=== PATIENT | female | born 2000 | race American Indian/Alaskan Native ===

== ENCOUNTER 2019-07-13 08:22 | Emergency (ER) | payer SELFPAY ==
[2019-07-13] MEDS ORDERED: LORazepam 2 MG/ML VIAL ONE (08:35)
[2019-07-13] MEDS ORDERED: LORazepam 2 MG/ML VIAL IV ONE (08:35)
[2019-07-13] MEDS ORDERED: SODIUM CHLORIDE 0.9% 1000 ML 1,000 ML IV ONE (08:36)
--- NOTE | 2019-07-13 08:41 | Emergency Department Report ---
ED General Adult HPI - General Chief complaint: Overdose Stated complaint: AMS Time Seen by Provider: 07/13/19 08:34 Source: EMS Mode of arrival: Stretcher Limitations: Other - History of Present Illness Initial comments: This is a 18-year old female that was found handcuffed by police on the [facility]. According to the medics she took LSD at approximately 2 AM. She had signs of excited delirium so they gave her Haldol, benzos and Benadryl. She did not respond to verbal de-escalation. She presented to the emergency department persistently delirious. She was able to tell me her name but proceeded with a delirious flight of ideas. There was no report of injury. Paramedics stated that she was tachycardic in the field with a normal blood pressure. -: hour(s) - Related Data Allergies Allergy/AdvReac Type Severity Reaction Status Date / Time No Known Allergies Allergy Verified 07/13/19 12:04 ED Review of Systems ROS: Stated complaint: AMS Other details as noted in HPI Comment: Unobtainable due to pts medical conditions ED Past Medical Hx - Past Medical History Additional medical history: Unknown - Social History Smoking Status: Never Smoker ED Physical Exam - General Limitations: Altered Mental Status General appearance: other (Quite agitated) - Head Head exam: Present: atraumatic - Eye Eye exam: Present: normal appearance - ENT ENT exam: Present: normal exam - Neck Neck exam: Present: normal inspection - Respiratory Respiratory exam: Present: normal lung sounds bilaterally. Absent: respiratory distress - Cardiovascular Cardiovascular Exam: Present: normal rhythm, tachycardia. Absent: systolic murmur, diastolic murmur, rubs, gallop - GI/Abdominal GI/Abdominal exam: Present: soft, normal bowel sounds. Absent: distended, tenderness, guarding, rebound, rigid - Extremities Exam Extremities exam: Present: normal inspection - Back Exam Back exam: Present: normal inspection - Neurological Exam Neurological exam: Present: altered, other (No apparent focal deficits) - Psychiatric Psychiatric exam: Present: agitated, flat affect - Skin Skin exam: Present: warm, dry, intact, normal color. Absent: rash ED Course Vital Signs 07/13/19 07/13/19 07/13/19 08:36 08:46 09:00 Temperature 98.8 F Pulse Rate 142 H 130 H Respiratory 29 H 19 Rate Blood Pressure 112/40 131/55 Blood Pressure 132/51 [Left] O2 Sat by Pulse 97 98 97 Oximetry 07/13/19 07/13/19 07/13/19 09:15 09:30 09:45 Temperature Pulse Rate 147 H Respiratory 31 H 26 H Rate Blood Pressure 124/48 124/48 133/51 Blood Pressure [Left] O2 Sat by Pulse 99 Oximetry 07/13/19 07/13/19 10:00 10:15 Temperature Pulse Rate 141 H 125 H Respiratory 24 29 H Rate Blood Pressure 125/59 124/71 Blood Pressure [Left] O2 Sat by Pulse Oximetry - Reevaluation(s) Reevaluation #1: Patient was observed. She became entirely coherent. Family arrived. She is appropriate for outpatient disposition. 07/13/19 13:30 ED Medical Decision Making - Lab Data Result diagrams: 07/13/19 08:49 07/13/19 08:49 Laboratory Results - last 24 hr 07/13/19 07/13/19 07/13/19 08:49 08:49 08:49 WBC 13.9 H RBC 3.96 Hgb 12.5 Hct 37.2 MCV 94 MCH 32 MCHC 34 RDW 13.4 Plt Count 203 Lymph % (Auto) 7.2 L [place] % (Auto) 7.2 Eos % (Auto) 0.1 Baso % (Auto) 0.3 Lymph # 1.0 L [place] # 1.0 H Eos # 0.0 Baso # 0.0 Seg Neutrophils % 85.2 H Seg Neutrophils # 11.8 H Sodium 138 Potassium 3.3 L Chloride 101.5 Carbon Dioxide 19 L Anion Gap 21 BUN 15 Creatinine 1.0 Estimated GFR > 60 BUN/Creatinine Ratio 15 Glucose 231 H Calcium 9.4 Total Bilirubin 0.40 AST 16 ALT 8 Alkaline Phosphatase 78 Total Creatine Kinase 346 H CK-MB (CK-2) 1.5 CK-MB (CK-2) Rel Index 0.4 Total Protein 6.9 Albumin 4.6 Albumin/Globulin Ratio 2.0 Salicylates < 0.3 L Acetaminophen 07/13/19 08:49 WBC RBC Hgb Hct MCV MCH MCHC RDW Plt Count Lymph % (Auto) [place] % (Auto) Eos % (Auto) Baso % (Auto) Lymph # [place] # Eos # Baso # Seg Neutrophils % Seg Neutrophils # Sodium Potassium Chloride Carbon Dioxide Anion Gap BUN Creatinine Estimated GFR BUN/Creatinine Ratio Glucose Calcium Total Bilirubin AST ALT Alkaline Phosphatase Total Creatine Kinase CK-MB (CK-2) CK-MB (CK-2) Rel Index Total Protein Albumin Albumin/Globulin Ratio Salicylates Acetaminophen < 5.0 L Laboratory Results - last 24 hr 07/13/19 07/13/19 07/13/19 08:49 08:49 08:49 WBC 13.9 H RBC 3.96 Hgb 12.5 Hct 37.2 MCV 94 MCH 32 MCHC 34 RDW 13.4 Plt Count 203 Lymph % (Auto) 7.2 L [place] % (Auto) 7.2 Eos % (Auto) 0.1 Baso % (Auto) 0.3 Lymph # 1.0 L [place] # 1.0 H Eos # 0.0 Baso # 0.0 Seg Neutrophils % 85.2 H Seg Neutrophils # 11.8 H Sodium 138 Potassium 3.3 L Chloride 101.5 Carbon Dioxide 19 L Anion Gap 21 BUN 15 Creatinine 1.0 Estimated GFR > 60 BUN/Creatinine Ratio 15 Glucose 231 H Calcium 9.4 Total Bilirubin 0.40 Direct Bilirubin < 0.2 Indirect Bilirubin 0.2 AST 16 ALT 8 Alkaline Phosphatase 78 Total Creatine Kinase 346 H CK-MB (CK-2) 1.5 CK-MB (CK-2) Rel Index 0.4 Total Protein 6.9 Albumin 4.6 Albumin/Globulin Ratio 2.0 Urine Color Urine Turbidity Urine pH Ur Specific [place] Urine Protein Urine Glucose (UA) Urine Ketones Urine Blood Urine Nitrite Ur Reducing Substances Urine Bilirubin Urine Ictotest Urine Urobilinogen Ur Leukocyte Esterase Urine WBC (Auto) Urine RBC (Auto) U Epithel Cells (Auto) Urine Mucus Urine HCG, Qual Salicylates < 0.3 L Acetaminophen 07/13/19 07/13/19 08:49 09:35 WBC RBC Hgb Hct MCV MCH MCHC RDW Plt Count Lymph % (Auto) [place] % (Auto) Eos % (Auto) Baso % (Auto) Lymph # [place] # Eos # Baso # Seg Neutrophils % Seg Neutrophils # Sodium Potassium Chloride Carbon Dioxide Anion Gap BUN Creatinine Estimated GFR BUN/Creatinine Ratio Glucose Calcium Total Bilirubin Direct Bilirubin Indirect Bilirubin AST ALT Alkaline Phosphatase Total Creatine Kinase CK-MB (CK-2) CK-MB (CK-2) Rel Index Total Protein Albumin Albumin/Globulin Ratio Urine Color Yellow Urine Turbidity Clear Urine pH 6.0 Ur Specific [place] 1.015 Urine Protein 30 mg/dl Urine Glucose (UA) 50 Urine Ketones 20 Urine Blood Neg Urine Nitrite Neg Ur Reducing Substances Not Reportable Urine Bilirubin Neg Urine Ictotest Not Reportable Urine Urobilinogen < 2.0 Ur Leukocyte Esterase Neg Urine WBC (Auto) 4.0 Urine RBC (Auto) 1.0 U Epithel Cells (Auto) 1.0 Urine Mucus Few Urine HCG, Qual Negative Salicylates Acetaminophen < 5.0 L - EKG Data -: EKG Interpreted by Me EKG shows normal: sinus rhythm, axis, intervals, QRS complexes, ST-T waves Rate: tachycardia - EKG Data Interpretation: nonspecific ST-T wave esme Critical care attestation.: If time is entered above; I have spent that time in minutes in the direct care of this critically ill patient, excluding procedure time. ED Disposition Clinical Impression: Substance abuse Disposition: DC-01 TO HOME OR SELFCARE Is pt being admited?: No Does the pt Need Aspirin: No Condition: Stable Instructions: Polysubstance Abuse (ED) Referrals: DEBI REINOSO MD [Primary Care Provider] - 3-5 Days Time of Disposition: 13:30
[2019-07-13 09:10] LABS: Basophils % (Auto) 0.3 % (0.0-1.8); Eosinophils % (Auto) 0.1 % (0.0-4.3); Hematocrit 37.2 % (30.3-42.9); Hemoglobin 12.5 gm/dl (10.1-14.3); Lymphocytes % (Auto) 7.2 % (13.4-35.0); Mean Corpuscular HGB Conc 34 % (30-34); Mean Corpuscular Volume 94 fl (79-97); Monocytes % (Auto) 7.2 % (0.0-7.3); Platelet Count 203 K/mm3 (140-440); Red Blood Count 3.96 M/mm3 (3.65-5.03); Red Cell Distribution Width 13.4 % (13.2-15.2)
[2019-07-13 09:33] LABS: Creatine Kinase MB 1.5 ng/mL (0.0-4.0)
[2019-07-13 09:36] LABS: Alanine Aminotransferase 8 units/L (7-56); Albumin 4.6 g/dL (3.9-5); BUN/Creatinine Ratio 15; Blood Urea Nitrogen 15 mg/dL (7-17); Calcium 9.4 mg/dL (8.4-10.2); Hemolysis Index 6
[2019-07-13 10:03] LABS: HCG Qualitative,Urine Negative (Negative)
[2019-07-13 10:04] LABS: Bilirubin,Urine NEG (Negative); Blood,Urine NEG (Negative); Color,Urine Yellow (Yellow); Mucus,Urine FEW /HPF; Urobilinogen,Urine < 2.0 mg/dL (<2.0)
[2019-07-13 10:15] LABS: Bilirubin,Direct < 0.2 mg/dL (0-0.2)
[2019-07-13 10:25] VITALS: BP 124/71
== END 2019-07-13 14:15 | disposition home or self-care (01) ==
LOC: ED 08:22
DX: F19.10 Other psychoactive substance abuse, uncomplicated (principal); R00.0 Tachycardia, unspecified; R41.82 Altered mental status, unspecified
CPT/HCPCS: 36415; 80048; 80076; 81001; 81025; 82550; 82553; 85025; 93005; 96361; 96374; 99284; J2060; J7030; 80320; G0480